=== PATIENT | male | born 1995 | race Two or more races ===

== ENCOUNTER 2021-11-10 18:29 | Emergency (ER) | payer OTHER ==
[~2021-11-10] VITALS: Ht 170.2 cm; Wt 83.9 kg
[2021-11-10 19:33] LABS: HEMATOCRIT 42.6 % (36.7-47.1); MEAN CORPUSCULAR HEMOGLOBIN 30.8 uug (23.8-33.4); MEAN CORPUSCULAR VOLUME 87.7 fL (73.0-96.2); PLATELET COUNT (AUTO) 233 K/uL (152-348)
[2021-11-10 19:44] LABS: BILIRUBIN,DIRECT 0.1 mg/dL (0.0-0.2); BILIRUBIN,TOTAL 0.6 mg/dL (0.2-1.0); CREATININE 0.9 mg/dL (0.6-1.3); POTASSIUM 3.6 mmol/L (3.5-5.1); TOTAL PROTEIN, SERUM 7.7 g/dL (6.4-8.2)
--- NOTE | 2021-11-10 19:45 | NUR ---
Pt placed in room 2b by display associate. Pt in pos of comfort. complainning of severe pain.
--- NOTE | 2021-11-10 20:00 | NUR ---
Pt wants to urinate, specimen cup given to collect UA. UA was not collected because pt states that he cannot go but has urgency.
[2021-11-10] MEDS ORDERED: HYDR-4209 PO (21:03)
--- NOTE | 2021-11-10 21:10 | NUR ---
Pt given dc instructions and med info and pt confirmed understanding of aftercare, Made sure that pharmacy is 24 hour and that script is ready for him upon arrival. Pt's vss, pe wnl, NAD. Pt ambulated out of dept with steady gait after signing dc instructions.
--- NOTE | 2021-11-10 21:30 | NUR ---
EDMD at bedside to assess pt. Addendum: 11/10/21 at 7 by [email or web address] Last note ment for 2029 and not 2129.
[2021-11-10 22:34] VITALS: BP 128/75
== END 2021-11-10 21:10 | disposition home or self-care (01) ==
LOC: ER 18:33
DX: R10.9 Unspecified abdominal pain (principal); Z88.6 Allergy status to analgesic agent
CPT/HCPCS: 36415; 83690; 85025; A4663